=== PATIENT | male | born 2000 | race Two or more races ===

== ENCOUNTER 2021-06-29 22:19 | Emergency (ER) | payer MEDICAID ==
[~2021-06-29] VITALS: Ht 177.8 cm; Wt 61.2 kg
[2021-06-29 22:40] VITALS: BP 111/72
== END 2021-06-30 04:53 | disposition left against medical advice (07) ==
LOC: ER 22:19
DX: R05.9 Cough, unspecified (principal); R09.81 Nasal congestion; R51.9 Headache, unspecified; Z53.21 Procedure and treatment not carried out due to patient leaving prior to being seen by health care provider
CPT/HCPCS: 36415; 87426; 87804